=== PATIENT | female | born 1945 | race Caucasian/White ===

== ENCOUNTER 2017-08-05 15:10 | Emergency (ER) | payer MEDICARE ==
[~2017-08-05] VITALS: Ht 162.6 cm; Wt 86.0 kg
[2017-08-05 15:20] VITALS: BP 183/74; PULSE 84; RESP 16; TEMP 98.6; O2SAT 96
--- NOTE | 2017-08-05 15:43 | PD ---
HPI Chief Complaint: Fall Time Seen by Provider: 15:28 Travel History International Travel<30 days: No Contact w/Intl Traveler<30days: No Traveled to known affect area: No History of Present Illness HPI 71-year-old female presents with her via EMS for evaluation after a mechanical fall. Patient is currently on vacation from [place]. She reports that yesterday she slipped on the wet tile and fell, landing on her left buttocks and twisting her right thigh in the process. She was able to ambulate yesterday. She woke up today with worsening pain which prompted evaluation. Her pain is primarily in her lower back, left hip and medial right thigh. It is an aching pain which is constant and worse with movement. She tried taking Aleve at home but symptoms persisted. She denies head injury, neck pain, thoracic back pain, chest pain, shortness of breath, abdominal pain, nausea or vomiting. She did hit her left elbow against the ground but denies any pain in her arms. Reports history of bilateral hip replacements in the past. No other complaints. [facility] Past Medical History ?: Not Social History Alcohol Use: Yes Tobacco Use: No Allergies-Medications (Allergen,Severity, Reaction): Coded Allergies: No Known Allergies (Unverified , 08/05/17) Reported Meds & Prescriptions Reported Meds & Active Scripts Active Walker with Front Wheels (Device) 1 Mis Mis Ea .ROUTE DIRECTED Flexeril (Cyclobenzaprine HCl) 5 Mg Tab 5 Mg PO TID 7 Days Review of Systems Except as stated in HPI: all other systems reviewed are Neg Physical Exam Narrative GENERAL: Well-developed well-nourished female in no acute distress SKIN: Warm and dry. HEAD: Atraumatic. Normocephalic. EYES: Pupils equal and round. No scleral icterus. No injection or drainage. ENT: No nasal bleeding or discharge. Mucous membranes pink and moist. NECK: Trachea midline. No JVD. CARDIOVASCULAR: Regular rate and rhythm. No murmur appreciated. RESPIRATORY: No accessory muscle use. Clear to auscultation. Breath sounds equal bilaterally. GASTROINTESTINAL: Abdomen soft, non-tender, nondistended. Hepatic and splenic margins not palpable. MUSCULOSKELETAL: No obvious deformities. There is no bruising or soft tissue swelling, no open wounds. The patient maintains full range of motion of the lower extremities. She has pain primarily with range of motion activities utilizing the right thigh and hip. She has some tenderness to palpation to the medial right thigh and lumbar spine as well as left buttocks. NEUROLOGICAL: Awake and alert. No obvious cranial nerve deficits. Motor grossly within normal limits. Normal speech. PSYCHIATRIC: Appropriate mood and affect; insight and judgment normal. Data Data Last Documented VS Vital Signs Date Time Temp Pulse Resp B/P (MAP) Pulse Ox O2 Delivery O2 Flow Rate FiO2 08/05/17 15:20 98.6 84 16 183/74 (110) 96 Orders Orders Femur (Ap & Lat/2vws) (08/05/17 ) Hip, Uni(Ap&Lat) W Ap Pelvis (08/05/17 ) Acetamin-Codeine 300-30 Mg (Tylenol-Code (08/05/17 15:45) Ondansetron Odt (Zofran Odt) (08/05/17 15:45) Spine, Lumbar - Ltd (Ap & Lat) (08/05/17 ) Ed Discharge Order (08/05/17 17:36) [facility] Medical Decision Making Medical Screen Exam Complete: Yes Emergency Medical Condition: Yes Medical Record Reviewed: Yes Differential Diagnosis Muscle strain, hip fracture, contusion, retroperitoneal hematoma, pelvic fracture Narrative Course X-ray imaging of the right femur, left hip/pelvis, lumbar spine has been ordered. The patient will be given Tylenol with codeine and Zofran. X-ray imaging reveals no acute abnormalities. The patient was able to sit on the edge of the bed with no assistance. She will be discharged with a walker as well as a short course of Flexeril. Recommended oall-xty-setmdan Aleve every 12 hours for pain. Stable for discharge. Diagnosis Primary Impression: Strain of right hip and thigh Additional Impression: Strain of left hip Additional Instructions: Take kibc-vdy-vpequej Aleve every 12 hours as needed for pain. Take with meals. Flexeril for muscle relaxation affect. Do not drive or drink alcohol when taking this medication. Walker as needed. Follow-up with primary care physician and return for any acutely new or worsening symptoms. Med/Other Pt SpecificInfo: Prescription(s) given Scripts Walker with Front Wheels (Walker with Front Wheels) 1 Mis Mis EA .ROUTE DIRECTED, #1 0 Refills Prov: Mohsen Lockhart MD 08/05/17 Cyclobenzaprine (Flexeril) 5 Mg Tab 5 MG PO TID for Muscle Spasm for 7 Days, #21 TAB 0 Refills Prov: Mohsen Lockhart MD 08/05/17 Disposition: 01 DISCHARGE HOME Condition: Stable Adrien Salazar Aug 05, 2017 15:43
[2017-08-05] MEDS ORDERED: ACETAMINOPHEN/CODEINE 300 MG/30 MG TAB PO ONE (15:45)
[2017-08-05] MEDS ORDERED: ONDANSETRON ODT 4 MG TAB PO ONE (15:45)
--- NOTE | 2017-08-05 16:57 | RADRPT ---
EXAM DATE/TIME: 08/05/2017 16:01 [facility] COMPARISON: No previous studies available for comparison. INDICATIONS : Pain post fall. MEDICAL HISTORY : None. SURGICAL HISTORY : Bilateral hip replacement. ENCOUNTER: Initial ACUITY: 4 - 6 days PAIN SCORE: 4/10 LOCATION: Left Hip. FINDINGS: AP and frog leg lateral views of left hip were obtained as well as an AP view of the pelvis. The rebecca ent is status post bilateral hip arthroplasty with no acute fracture or malalignment. Heterotopic bon e is noted along the lateral left hip. The pubic rami are intact and there is mild osteopenia. CONCLUSION: 1. Osteopenia with no acute fracture or malalignment. 2. Status post bilateral hip arthroplasty. Malik Rodriguez MD on August 05, 2017 at 16:54 Board Certified Radiologist. This report was verified electronically.
--- NOTE | 2017-08-05 16:58 | RADRPT ---
EXAM DATE/TIME: 08/05/2017 16:13 [facility] COMPARISON: No previous studies available for comparison. INDICATIONS : Pain post fall. MEDICAL HISTORY : None. SURGICAL HISTORY : Bilateral hip replacement. ENCOUNTER: Initial ACUITY: 2 days PAIN SCORE: 4/10 LOCATION: Lower back. FINDINGS: AP and lateral views of the lumbar spine were obtained and demonstrate 5 aif-dye-mosatrj lumbar-type vertebra. There is diffuse osteopenia but no acute fracture or malalignment. There are degenerative d isc changes greatest at the L4-5 level with disc space narrowing and hypertrophic change. There are m ild degenerative change involving the lower facet joints. The sacrum and coccyx are intact. The patie nt is status post bilateral hip arthroplasty CONCLUSION: 1. No acute fracture or malalignment. 2. This change greatest at the L4-5 level. Malik Rodriguez MD on August 05, 2017 at 16:54 Board Certified Radiologist. This report was verified electronically.
--- NOTE | 2017-08-05 17:22 | RADRPT ---
EXAM DATE/TIME: 08/05/2017 16:01 [facility] COMPARISON: No previous studies available for comparison. INDICATIONS : Pain post fall. MEDICAL HISTORY : None. SURGICAL HISTORY : Bilateral hip replacement. ENCOUNTER: Initial ACUITY: 2 days PAIN SCORE: 4/10 LOCATION: Right Lateral side of femur. FINDINGS: Right hip arthroplasty in place. Hardware appears intact without periaortic artery where lucency. Oss eous structures are intact without evidence for acute bony fracture. There is anatomic alignment. Sof t tissues are unremarkable. CONCLUSION: 1. Right hip arthroplasty in place without evidence of hardware failure. 2. No acute fracture or dislocation. Zev Aguila MD on August 05, 2017 at 17:19 Board Certified Radiologist. This report was verified electronically.
[2017-08-05] MEDS ORDERED: WALKER WHEELS/F1 MIS (17:35)
[2017-08-05] MEDS ORDERED: CYCL5TAB PO (17:35)
== END 2017-08-05 17:59 | disposition home or self-care (01) ==
LOC: NEPD 15:10
DX: S76.011A Strain of muscle, fascia and tendon of right hip, initial encounter (principal); S76.012A Strain of muscle, fascia and tendon of left hip, initial encounter; S76.911A Strain of unspecified muscles, fascia and tendons at thigh level, right thigh, initial encounter; W01.0XXA Fall on same level from slipping, tripping and stumbling without subsequent striking against object, initial encounter; Z96.643 Presence of artificial hip joint, bilateral
CPT/HCPCS: 72100; 73502; 73552; 99284